=== PATIENT | female | born 1960 | race African-American/Black ===

== ENCOUNTER 2017-07-30 22:52 | Inpatient (IN) ==
[2017-07-31] MEDS ORDERED: GLUCAGON 1 MG VIAL IM PRN (02:03)
[2017-07-31] MEDS ORDERED: traZODone 50 MG TABLET PO PRN (02:03)
[2017-07-31] MEDS ORDERED: DEXTROSE 50% 25 GM/50 ML VIAL IV PRN (02:03)
[2017-07-31] MEDS ORDERED: HYDROmorphone 2 MG/1 ML VIAL IV PRN (02:08)
[2017-07-31] MEDS: SODIUM CHLORIDE 0.9% 1,000 ML IV SCH ×2 (02:26→16:30)
[2017-07-31] MEDS: PROMETHAZINE 25 MG/1 ML VIAL IM PRN ×2 (02:30→12:33)
[2017-07-31 03:24] LABS: Basophils % 0.2 % (0.0-0.8); Hematocrit 32.2 VOL% (35.7-47.0); Hemoglobin 9.8 GM/DL (12.0-16.0); Immature Granulocytes % 1.7 %; Immature Granulocytes Absolute 0.22 #; Lymphocytes # 0.5 10*3/uL (1.4-4.0); Lymphocytes % 3.6 % (21.3-54.2); Mean Corpuscular HGB Conc 30.4 GM/DL (32-36); Mean Corpuscular Hemoglobin 22 PG (27-34); Mean Corpuscular Volume 72.2 FL (87-102); Mean Platelet Volume 10.9 FL (9.6-12.0); Monocytes % 7.7 % (1.7-12.7); Neutrophils # 11.2 10*3/uL (1.4-7.4); Neutrophils % 86.8 % (38.7-73.9); Platelet Count 476 T/CUMM (130-400); Red Blood Count 4.46 MC/CUMM (3.8-5.5); White Blood Count 12.9 T/CUMM (4-12)
[2017-07-31] MEDS: INSULIN REGULAR 100 UNIT/ML SUBCUT SCH ×5 (03:30→21:07)
[2017-07-31] MEDS: ENOXAPARIN 40 MG/0.4 ML SYRINGE SUBCUT SCH (03:45)
[2017-07-31 03:51] LABS: Albumin 2.3 G/DL (3.4-5.0); Bilirubin,Total 0.8 MG/DL (0.2-1.0); Calcium 9.1 MG/DL (8.5-10.1); Magnesium 1.8 MG/DL (1.8-2.4); Osmolality,Calculated 277.5 MOS/KG (273-304); Potassium 4.5 MMOL/L (3.5-5.1); Total Protein 8.1 G/DL (6.4-8.3)
[2017-07-31] MEDS: VANCOMYCIN INJ 1,250 MG in SODIUM CHLORIDE 0.9% 250 ML IV SCH ×2 (04:06→21:40)
[2017-07-31 07:42] LABS: Band Neutrophils 14 % (0-10); Lymphocytes 6 % (20-55); Segmented Neutrophils 76 % (50-85); Total Cells Counted 100
[2017-07-31] MEDS: CIPROFLOXACIN 500 MG TABLET PO SCH ×2 (09:04→21:07)
[2017-07-31] MEDS: PANTOPRAZOLE 40 MG TABLET PO SCH (09:04)
[2017-07-31] MEDS: DOCUSATE SODIUM 100 MG CAPSULE PO SCH ×2 (09:04→21:07)
[2017-07-31] MEDS ORDERED: PROMETHAZINE 25 MG TABLET PO PRN (12:40)
[2017-07-31] MEDS: ONDANSETRON 4 MG/2 ML VIAL IV PRN (16:30)
[2017-07-31] MEDS: METOCLOPRAMIDE 10 MG/2 ML VIAL IV PRN (16:30)
[2017-07-31] MEDS ORDERED: INSULIN GLARGINE 100 UNIT/ML SUBCUT SCH (21:00)
[2017-07-31] MEDS: INSULIN GLARGINE 100 UNIT/ML SUBCUT SCH (21:08)
[2017-08-01] MEDS: SODIUM CHLORIDE 0.9% 1,000 ML IV SCH (07:11)
[2017-08-01 07:15] LABS: Basophils % 0.2 % (0.0-0.8); Eosinophils % 0.1 % (0.00-10.9); Hematocrit 31.4 VOL% (35.7-47.0); Hemoglobin 9.9 GM/DL (12.0-16.0); Immature Granulocytes % 0.5 %; Immature Granulocytes Absolute 0.06 #; Lymphocytes # 0.9 10*3/uL (1.4-4.0); Lymphocytes % 6.8 % (21.3-54.2); Mean Corpuscular HGB Conc 31.5 GM/DL (32-36); Mean Corpuscular Hemoglobin 22 PG (27-34); Mean Corpuscular Volume 70.7 FL (87-102); Mean Platelet Volume 10.1 FL (9.6-12.0); Monocytes # 1.3 10*3/uL (0.11-0.8); Monocytes % 9.6 % (1.7-12.7); Neutrophils # 10.9 10*3/uL (1.4-7.4); Neutrophils % 82.8 % (38.7-73.9); Platelet Count 496 T/CUMM (130-400); Red Blood Count 4.44 MC/CUMM (3.8-5.5); Red Cell Distribution Width 15.9 % (9.3-17.3); White Blood Count 13.1 T/CUMM (4-12)
[2017-08-01 07:50] LABS: Calcium 8.6 MG/DL (8.5-10.1); Osmolality,Calculated 276.1 MOS/KG (273-304)
[2017-08-01] MEDS: INSULIN REGULAR 100 UNIT/ML SUBCUT SCH ×4 (08:39→20:54)
[2017-08-01] MEDS: METOCLOPRAMIDE 10 MG/2 ML VIAL IV PRN (08:40)
[2017-08-01] MEDS: ONDANSETRON 4 MG/2 ML VIAL IV PRN ×2 (08:40→20:58)
[2017-08-01] MEDS: CIPROFLOXACIN 500 MG TABLET PO SCH ×2 (08:40→20:54)
[2017-08-01] MEDS: PANTOPRAZOLE 40 MG TABLET PO SCH (08:40)
[2017-08-01] MEDS: DOCUSATE SODIUM 100 MG CAPSULE PO SCH ×2 (08:41→20:54)
[2017-08-01] MEDS: ENOXAPARIN 40 MG/0.4 ML SYRINGE SUBCUT SCH (08:41)
[2017-08-01] MEDS: VANCOMYCIN INJ 1,250 MG in SODIUM CHLORIDE 0.9% 250 ML IV SCH ×2 (10:20→20:53)
[2017-08-01] MEDS: INSULIN GLARGINE 100 UNIT/ML SUBCUT SCH (20:54)
[2017-08-02 04:32] LABS: Basophils % 0.3 % (0.0-0.8); Eosinophils % 0.4 % (0.00-10.9); Hematocrit 28.6 VOL% (35.7-47.0); Hemoglobin 8.7 GM/DL (12.0-16.0); Immature Granulocytes % 0.5 %; Immature Granulocytes Absolute 0.05 #; Lymphocytes # 1.4 10*3/uL (1.4-4.0); Lymphocytes % 13.2 % (21.3-54.2); Mean Corpuscular HGB Conc 30.4 GM/DL (32-36); Mean Corpuscular Hemoglobin 22 PG (27-34); Mean Corpuscular Volume 71.7 FL (87-102); Mean Platelet Volume 10.7 FL (9.6-12.0); Monocytes # 1.1 10*3/uL (0.11-0.8); Monocytes % 10.4 % (1.7-12.7); Neutrophils # 7.9 10*3/uL (1.4-7.4); Neutrophils % 75.2 % (38.7-73.9); Platelet Count 460 T/CUMM (130-400); Red Blood Count 3.99 MC/CUMM (3.8-5.5); Red Cell Distribution Width 15.8 % (9.3-17.3); White Blood Count 10.5 T/CUMM (4-12)
[2017-08-02 04:53] LABS: Calcium 8.2 MG/DL (8.5-10.1); Potassium 3.8 MMOL/L (3.5-5.1)
[2017-08-02] MEDS: SODIUM CHLORIDE 0.9% 1,000 ML IV SCH (05:13)
[2017-08-02] MEDS: DOCUSATE SODIUM 100 MG CAPSULE PO SCH ×2 (08:50→21:11)
[2017-08-02] MEDS: CIPROFLOXACIN 500 MG TABLET PO SCH ×2 (08:50→21:11)
[2017-08-02] MEDS: INSULIN REGULAR 100 UNIT/ML SUBCUT SCH ×4 (08:50→21:17)
[2017-08-02] MEDS: PANTOPRAZOLE 40 MG TABLET PO SCH (08:51)
[2017-08-02] MEDS: ENOXAPARIN 40 MG/0.4 ML SYRINGE SUBCUT SCH (08:51)
[2017-08-02] MEDS: VANCOMYCIN INJ 1,250 MG in SODIUM CHLORIDE 0.9% 250 ML IV SCH ×2 (10:02→21:11)
[2017-08-02] MEDS ORDERED: ROPIVACAINE 0.5% 30 ML VIAL ONE (13:52)
[2017-08-02] MEDS ORDERED: ONDANSETRON 4 MG/2 ML VIAL IV PRN (14:08)
[2017-08-02] MEDS: HYDROmorphone 2 MG/1 ML VIAL IV PRN ×4 (14:12→14:37)
[2017-08-02] MEDS ORDERED: PROPOFOL 200 MG/20 ML VIAL IV ONE (14:54)
[2017-08-02] MEDS ORDERED: fentaNYL 100 MCG/2 ML VIAL ONE (14:55)
[2017-08-02] MEDS ORDERED: ACETAMINOPHEN 1,000 MG/100 ML VIAL IV ONE (14:55)
[2017-08-02] MEDS ORDERED: KETOROLAC 30 MG/1 ML VIAL ONE (14:55)
[2017-08-02] MEDS ORDERED: diphenhydrAMINE 50 MG/1 ML VIAL IV ONE (15:21)
[2017-08-02] MEDS: oxyCODONE/ACETAMINOPHEN 5-325 MG TABLET PO PRN (20:04)
[2017-08-02] MEDS: INSULIN GLARGINE 100 UNIT/ML SUBCUT SCH (21:11)
[2017-08-03] MEDS: diphenhydrAMINE CAP 25 MG CAPSULE PO PRN (00:21)
[2017-08-03 07:54] LABS: Basophils % 0.5 % (0.0-0.8); Eosinophils # 0.2 10*3/uL (0.0-0.87); Eosinophils % 2.7 % (0.00-10.9); Hematocrit 28.1 VOL% (35.7-47.0); Hemoglobin 8.6 GM/DL (12.0-16.0); Immature Granulocytes % 0.6 %; Immature Granulocytes Absolute 0.04 #; Lymphocytes # 1.5 10*3/uL (1.4-4.0); Lymphocytes % 22.7 % (21.3-54.2); Mean Corpuscular HGB Conc 30.6 GM/DL (32-36); Mean Corpuscular Hemoglobin 22 PG (27-34); Monocytes # 0.6 10*3/uL (0.11-0.8); Monocytes % 9.4 % (1.7-12.7); Neutrophils # 4.1 10*3/uL (1.4-7.4); Neutrophils % 64.1 % (38.7-73.9); Platelet Count 526 T/CUMM (130-400); Red Blood Count 3.85 MC/CUMM (3.8-5.5); Red Cell Distribution Width 16.3 % (9.3-17.3); White Blood Count 6.4 T/CUMM (4-12)
[2017-08-03 08:18] LABS: Calcium 7.8 MG/DL (8.5-10.1); Magnesium 1.6 MG/DL (1.8-2.4); Potassium 3.8 MMOL/L (3.5-5.1)
[2017-08-03] MEDS: DOCUSATE SODIUM 100 MG CAPSULE PO SCH ×2 (09:40→21:07)
[2017-08-03] MEDS: PANTOPRAZOLE 40 MG TABLET PO SCH (09:40)
[2017-08-03] MEDS: CIPROFLOXACIN 500 MG TABLET PO SCH ×2 (09:40→21:07)
[2017-08-03] MEDS: INSULIN REGULAR 100 UNIT/ML SUBCUT SCH ×4 (09:40→21:08)
[2017-08-03] MEDS: VANCOMYCIN INJ 1,250 MG in SODIUM CHLORIDE 0.9% 250 ML IV SCH (09:40)
[2017-08-03] MEDS: ENOXAPARIN 40 MG/0.4 ML SYRINGE SUBCUT SCH (09:41)
[2017-08-03] MEDS: SODIUM CHLORIDE 0.9% 1,000 ML IV SCH (09:48)
[2017-08-03] MEDS: INSULIN GLARGINE 100 UNIT/ML SUBCUT SCH (21:00)
[2017-08-04] MEDS: SODIUM CHLORIDE 0.9% 1,000 ML IV SCH ×2 (01:06→14:23)
[2017-08-04 06:59] LABS: Calcium 7.8 MG/DL (8.5-10.1); Osmolality,Calculated 289.3 MOS/KG (273-304); Potassium 4.3 MMOL/L (3.5-5.1)
[2017-08-04] MEDS: CIPROFLOXACIN 500 MG TABLET PO SCH (08:33)
[2017-08-04] MEDS: INSULIN REGULAR 100 UNIT/ML SUBCUT SCH ×4 (08:34→21:06)
[2017-08-04] MEDS: DOCUSATE SODIUM 100 MG CAPSULE PO SCH ×2 (08:34→21:04)
[2017-08-04] MEDS: PANTOPRAZOLE 40 MG TABLET PO SCH (08:34)
[2017-08-04] MEDS: ENOXAPARIN 40 MG/0.4 ML SYRINGE SUBCUT SCH (08:34)
[2017-08-04] MEDS: diphenhydrAMINE CAP 25 MG CAPSULE PO PRN (14:37)
[2017-08-04] MEDS: CILOSTAZOL 50 MG TABLET PO SCH (21:04)
[2017-08-04] MEDS: INSULIN GLARGINE 100 UNIT/ML SUBCUT SCH (21:05)
[2017-08-05] MEDS: SODIUM CHLORIDE 0.9% 1,000 ML IV SCH ×2 (03:43→16:40)
[2017-08-05] MEDS: oxyCODONE/ACETAMINOPHEN 5-325 MG TABLET PO PRN (05:00)
[2017-08-05] MEDS: DULOXETINE HCL 60 MG PO SCH (08:47)
[2017-08-05] MEDS: ENOXAPARIN 40 MG/0.4 ML SYRINGE SUBCUT SCH (08:47)
[2017-08-05] MEDS: DOCUSATE SODIUM 100 MG CAPSULE PO SCH ×2 (08:47→22:08)
[2017-08-05] MEDS: GABAPENTIN 600 MG TABLET PO SCH (08:47)
[2017-08-05] MEDS: CILOSTAZOL 50 MG TABLET PO SCH ×2 (08:47→22:07)
[2017-08-05] MEDS: PRAVASTATIN 40 MG TABLET PO SCH (08:47)
[2017-08-05] MEDS: INSULIN REGULAR 100 UNIT/ML SUBCUT SCH ×4 (08:47→22:08)
[2017-08-05] MEDS: METFORMIN HCL 1000 MG PO SCH ×2 (08:47→16:39)
[2017-08-05] MEDS: PANTOPRAZOLE 40 MG TABLET PO SCH (08:47)
[2017-08-05] MEDS ORDERED: TUBERCULIN SKIN TEST 0.1 ML SYRINGE INTRADERM ONE (14:00)
[2017-08-05] MEDS: INSULIN GLARGINE 100 UNIT/ML SUBCUT SCH (16:38)
[2017-08-06] MEDS: SODIUM CHLORIDE 0.9% 1,000 ML IV SCH (05:43)
[2017-08-06] MEDS: INSULIN REGULAR 100 UNIT/ML SUBCUT SCH ×2 (08:36→13:28)
[2017-08-06] MEDS: DOCUSATE SODIUM 100 MG CAPSULE PO SCH (09:08)
[2017-08-06] MEDS: INSULIN GLARGINE 100 UNIT/ML SUBCUT SCH (09:14)
[2017-08-06] MEDS: CILOSTAZOL 50 MG TABLET PO SCH (09:14)
[2017-08-06] MEDS: ENOXAPARIN 40 MG/0.4 ML SYRINGE SUBCUT SCH (09:14)
[2017-08-06] MEDS: DULOXETINE HCL 60 MG PO SCH (09:14)
[2017-08-06] MEDS: GABAPENTIN 600 MG TABLET PO SCH (09:15)
[2017-08-06] MEDS: PANTOPRAZOLE 40 MG TABLET PO SCH (09:15)
[2017-08-06] MEDS: PRAVASTATIN 40 MG TABLET PO SCH (09:15)
[2017-08-06] MEDS: METFORMIN HCL 1000 MG PO SCH (09:15)
[2017-08-06 12:08] VITALS: BP 153/80
== END 2017-08-06 13:50 | DRG 617 ==
LOC: SUATTDRO 07-31 00:28 → N.2E 07-31 00:28
PROVIDERS: ADMIT Emergency Medicine; ATTEND Internal Medicine

== ENCOUNTER 2020-10-18 19:04 | Inpatient (IN) ==
[2020-10-18] MEDS ORDERED: PROMETHAZINE 25 MG/1 ML VIAL IM PRN (22:46)
[2020-10-18] MEDS ORDERED: NICOTINE 21 MG/24 HR PATCH TRANSDERM PRN (22:46)
[2020-10-18] MEDS ORDERED: ZALEPLON 5 MG CAPSULE PO PRN (22:46)
[2020-10-18] MEDS ORDERED: diphenhydrAMINE CAP 25 MG CAPSULE PO PRN (22:46)
[2020-10-18] MEDS ORDERED: ACETAMINOPHEN 325 MG TABLET PO PRN (22:46)
[2020-10-18] MEDS ORDERED: GLUCAGON 1 MG VIAL IM PRN (22:46)
[2020-10-18] MEDS ORDERED: DEXTROSE 50% 25 GM/50 ML VIAL IV PRN (22:46)
[2020-10-18] MEDS ORDERED: MORPHINE 4 MG/1 ML VIAL IV PRN (22:46)
[2020-10-18] MEDS ORDERED: guaiFENesin/DM ER 600-30 MG TABLET PO PRN (22:46)
[2020-10-18] MEDS ORDERED: hydrALAZINE 20 MG/1 ML VIAL IV PRN (22:46)
[2020-10-18] MEDS ORDERED: PANTOPRAZOLE 40 MG VIAL IV ONE (22:50)
[2020-10-19] MEDS ORDERED: ASPIRIN 325 MG TABLET PO ONE (00:10)
[2020-10-19] MEDS ORDERED: NITROGLYCERIN SL 0.4 MG TABLET SL PRN (00:12)
[2020-10-19] MEDS ORDERED: METOPROLOL TARTRATE 25 MG TABLET PO ONE (00:12)
[2020-10-19 05:55] LABS: Basophils % 0.1 % (0.0-0.8); Hemoglobin 13.6 GM/DL (12.0-16.0); Immature Granulocytes % 0.3 %; Immature Granulocytes Absolute 0.04 #; Lymphocytes # 0.9 10*3/uL (1.4-4.0); Lymphocytes % 7.8 % (21.3-54.2); Mean Corpuscular HGB Conc 30.9 GM/DL (32-36); Mean Corpuscular Volume 88.7 FL (87-102); Mean Platelet Volume 11.3 FL (9.6-12.0); Monocytes % 2.3 % (1.7-12.7); Neutrophils % 89.5 % (38.7-73.9); Platelet Count 269 T/CUMM (130-400); Red Blood Count 4.96 MC/CUMM (3.8-5.5); Red Cell Distribution Width 13.2 % (9.3-17.3); White Blood Count 11.7 T/CUMM (4-12)
[2020-10-19 06:12] LABS: Albumin 3.3 G/DL (3.4-5.0); Bilirubin,Total 1.2 MG/DL (0.2-1.0); Calcium 9.4 MG/DL (8.5-10.1); Osmolality,Calculated 304.5 MOS/KG (273-304); Potassium 4.7 MMOL/L (3.5-5.1); Total Protein 8.2 G/DL (6.4-8.2)
[2020-10-19 06:18] LABS: Risk Ratio 3.51; VLDL CHOLESTEROL 32.4 MG/DL
[2020-10-19] MEDS ORDERED: INSULIN LISPRO 100 UNIT/ML SUBCUT SCH (06:30)
[2020-10-19 08:48] LABS: Troponin I 0.132 NG/ML (0.00-0.045)
[2020-10-19] MEDS ORDERED: METOPROLOL TARTRATE 25 MG TABLET PO SCH (09:00)
[2020-10-19] MEDS ORDERED: INSULIN GLARGINE 100 UNIT/ML SUBCUT SCH (09:00)
[2020-10-19] MEDS: cilostazoL 50 MG TABLET PO SCH ×2 (10:17→20:23)
[2020-10-19] MEDS: METOPROLOL TARTRATE 25 MG TABLET PO SCH ×2 (10:17→20:23)
[2020-10-19] MEDS: SIMVASTATIN 40 MG TABLET PO SCH (10:17)
[2020-10-19] MEDS: GABAPENTIN 600 MG TABLET PO SCH (10:17)
[2020-10-19] MEDS: INSULIN LISPRO 100 UNIT/ML SUBCUT SCH ×4 (10:17→20:24)
[2020-10-19] MEDS: DULoxetine 30 MG CAPSULE PO SCH (10:17)
[2020-10-19] MEDS: ONDANSETRON 4 MG/2 ML VIAL IV PRN (10:46)
[2020-10-19 11:57] LABS: Bacteria,Urine Occasional /HPF (Few); Bilirubin,Urine Negative (Negative); Blood, Urine Small mg/dL (Negative); Glucose,Urine (UA) >=500 mg/dL (Negative); Ketones,Urine 20 mg/dL (Negative); Nitrite,Urine Negative (Negative); Protein,Urine >=500 MG/DL; RBC,Urine 2 /HPF (0-4); Squamous Epithelial Cell,Urine Occasional /HPF (0-10); Urine Appearance Slightly Hazy (Clear); Urine Color Yellow (Yellow); Urine Specific Gravity 1.026 (1.001-1.035); Urine Urobilinogen < 2.0 EU/DL (0.2-1.0); WBC,Urine 1 /HPF (0-6)
[2020-10-19 11:58] LABS: Troponin I 0.109 NG/ML (0.00-0.045)
[2020-10-19] MEDS ORDERED: MULTIVITAMIN INJ 10 ML in SODIUM CHLORIDE 0.45% 1,000 ML IV SCH (12:30)
[2020-10-19] MEDS: PANTOPRAZOLE 40 MG VIAL IV SCH ×2 (13:20→20:25)
[2020-10-19] MEDS: SODIUM CHLORIDE 0.45% 1,000 ML IV SCH ×2 (13:20→21:38)
[2020-10-19 13:26] LABS: Calcium 8.9 MG/DL (8.5-10.1); Osmolality,Calculated 300.3 MOS/KG (273-304); Potassium 4.1 MMOL/L (3.5-5.1)
[2020-10-19 13:32] LABS: Troponin I 0.108 NG/ML (0.00-0.045)
[2020-10-19] MEDS: ENOXAPARIN 40 MG/0.4 ML SYRINGE SUBCUT SCH (20:22)
[2020-10-19] MEDS: INSULIN GLARGINE 100 UNIT/ML SUBCUT SCH (20:25)
[2020-10-20 05:28] LABS: Calcium 8.1 MG/DL (8.5-10.1); Osmolality,Calculated 284.8 MOS/KG (273-304); Potassium 3.5 MMOL/L (3.5-5.1)
[2020-10-20 05:32] LABS: Basophils % 0.2 % (0.0-0.8); Eosinophils % 0.3 % (0.00-10.9); Hematocrit 36.2 VOL% (35.7-47.0); Immature Granulocytes % 0.4 %; Immature Granulocytes Absolute 0.04 #; Lymphocytes # 3.9 10*3/uL (1.4-4.0); Lymphocytes % 34.4 % (21.3-54.2); Mean Corpuscular Volume 86.6 FL (87-102); Mean Platelet Volume 11.3 FL (9.6-12.0); Monocytes % 7.6 % (1.7-12.7); Neutrophils % 57.1 % (38.7-73.9); Red Blood Count 4.18 MC/CUMM (3.8-5.5); White Blood Count 11.4 T/CUMM (4-12)
[2020-10-20 05:34] LABS: Hemoglobin 11.6 GM/DL (12.0-16.0); Platelet Count 202 T/CUMM (130-400)
[2020-10-20] MEDS: SODIUM CHLORIDE 0.9% 1,000 ML IV SCH ×3 (09:03→20:34)
[2020-10-20] MEDS: cilostazoL 50 MG TABLET PO SCH (09:06)
[2020-10-20] MEDS: ASPIRIN 325 MG TABLET PO SCH (09:06)
[2020-10-20] MEDS: SIMVASTATIN 40 MG TABLET PO SCH (09:06)
[2020-10-20] MEDS: DULoxetine 30 MG CAPSULE PO SCH (09:06)
[2020-10-20] MEDS: GABAPENTIN 600 MG TABLET PO SCH (09:07)
[2020-10-20] MEDS: INSULIN LISPRO 100 UNIT/ML SUBCUT SCH ×4 (09:07→20:35)
[2020-10-20] MEDS: INSULIN GLARGINE 100 UNIT/ML SUBCUT SCH ×2 (09:07→20:33)
[2020-10-20] MEDS ORDERED: GLUCAGON 1 MG VIAL IM PRN (10:01)
[2020-10-20] MEDS ORDERED: DEXTROSE 50% 25 GM/50 ML VIAL IV PRN (10:01)
[2020-10-20] MEDS ORDERED: SODIUM CHLORIDE 0.9% 500 ML IV ONE ×2 (11:20→12:41)
[2020-10-20] MEDS ORDERED: PANTOPRAZOLE 40 MG TABLET PO SCH (11:30)
[2020-10-20] MEDS: SUCRALFATE 1 GM TABLET PO SCH ×3 (12:30→20:34)
[2020-10-20 13:54] LABS: Bilirubin,Urine Negative (Negative); Blood, Urine Negative (Negative); Glucose,Urine (UA) >=500 mg/dL (Negative); Hyaline Casts,Urine 1 /LPF (0-3); Ketones,Urine 5 mg/dL (Negative); Nitrite,Urine Negative (Negative); Protein,Urine >=500 MG/DL; RBC,Urine 1 /HPF (0-4); Squamous Epithelial Cell,Urine Occasional /HPF (0-10); Urine Appearance Slightly Hazy (Clear); Urine Color Yellow (Yellow); Urine Specific Gravity 1.021 (1.001-1.035); Urine Urobilinogen < 2.0 EU/DL (0.2-1.0); WBC,Urine 2 /HPF (0-6)
[2020-10-20] MEDS ORDERED: NOREPINEPHRINE 8 MG in SODIUM CHLORIDE 0.9% 242 ML IV PRN (17:46)
[2020-10-20] MEDS: AZITHROMYCIN 250 MG TABLET PO SCH (18:45)
[2020-10-20] MEDS: cefTRIAXone 1,000 MG in SODIUM CHLORIDE 0.9% 100 ML IV SCH (18:45)
[2020-10-20] MEDS: hydrALAZINE 20 MG/1 ML VIAL IV PRN (18:45)
[2020-10-20] MEDS: ENOXAPARIN 40 MG/0.4 ML SYRINGE SUBCUT SCH (20:34)
[2020-10-21 04:50] LABS: Basophils # 0.1 10*3/uL (0.0-0.2); Basophils % 0.6 % (0.0-0.8); Eosinophils # 0.2 10*3/uL (0.0-0.87); Eosinophils % 1.8 % (0.00-10.9); Hemoglobin 12.4 GM/DL (12.0-16.0); Immature Granulocytes % 0.4 %; Immature Granulocytes Absolute 0.03 #; Lymphocytes # 2.4 10*3/uL (1.4-4.0); Lymphocytes % 28.6 % (21.3-54.2); Mean Corpuscular HGB Conc 32.6 GM/DL (32-36); Mean Corpuscular Volume 85.6 FL (87-102); Neutrophils % 59.6 % (38.7-73.9); Platelet Count 201 T/CUMM (130-400); Red Blood Count 4.44 MC/CUMM (3.8-5.5); Red Cell Distribution Width 12.6 % (9.3-17.3); White Blood Count 8.2 T/CUMM (4-12)
[2020-10-21 05:07] LABS: Osmolality,Calculated 293.5 MOS/KG (273-304); Potassium 4.2 MMOL/L (3.5-5.1)
[2020-10-21 05:12] LABS: Albumin 2.6 G/DL (3.4-5.0); Bilirubin,Total 0.6 MG/DL (0.2-1.0); Osmolality,Calculated 295.4 MOS/KG (273-304); Potassium 3.8 MMOL/L (3.5-5.1); Total Protein 6.3 G/DL (6.4-8.2)
[2020-10-21] MEDS: hydrALAZINE 20 MG/1 ML VIAL IV PRN ×2 (05:19→11:47)
[2020-10-21] MEDS ORDERED: LABETALOL 20 MG/4 ML SYRINGE IV ONE (06:13)
[2020-10-21] MEDS: SUCRALFATE 1 GM TABLET PO SCH ×4 (07:00→22:31)
[2020-10-21] MEDS ORDERED: hydrALAZINE 20 MG/1 ML VIAL IV ONE ×2 (07:16)
[2020-10-21] MEDS: ONDANSETRON 4 MG/2 ML VIAL IV PRN ×2 (07:35→11:31)
[2020-10-21] MEDS: INSULIN LISPRO 100 UNIT/ML SUBCUT SCH ×4 (08:01→22:33)
[2020-10-21] MEDS: SODIUM CHLORIDE 0.9% 1,000 ML IV SCH ×2 (08:02→08:40)
[2020-10-21] MEDS: INSULIN GLARGINE 100 UNIT/ML SUBCUT SCH ×2 (08:02→22:32)
[2020-10-21] MEDS ORDERED: ONDANSETRON 4 MG/2 ML VIAL ONE (09:38)
[2020-10-21] MEDS ORDERED: DEXAMETHASONE 4 MG/1 ML VIAL ONE (09:38)
[2020-10-21] MEDS ORDERED: propofoL 200 MG/20 ML VIAL IV ONE (09:38)
[2020-10-21] MEDS ORDERED: LIDOCAINE 2% 5 ML VIAL ONE (09:38)
[2020-10-21] MEDS: SODIUM CHLORIDE 0.45% 1,000 ML IV SCH (10:30)
[2020-10-21] MEDS: AZITHROMYCIN 250 MG TABLET PO SCH (11:01)
[2020-10-21] MEDS: ASPIRIN 325 MG TABLET PO SCH (11:01)
[2020-10-21] MEDS: METOPROLOL TARTRATE 25 MG TABLET PO SCH ×2 (11:02→22:32)
[2020-10-21] MEDS: SIMVASTATIN 40 MG TABLET PO SCH (11:02)
[2020-10-21] MEDS: DULoxetine 30 MG CAPSULE PO SCH (11:02)
[2020-10-21] MEDS ORDERED: PROMETHAZINE INJ 25 MG in SODIUM CHLORIDE 0.9% 50 ML IV ONE (12:39)
[2020-10-21] MEDS: cefTRIAXone 1,000 MG in SODIUM CHLORIDE 0.9% 100 ML IV SCH (17:52)
[2020-10-21] MEDS: ENOXAPARIN 40 MG/0.4 ML SYRINGE SUBCUT SCH (22:33)
[2020-10-22] MEDS: SODIUM CHLORIDE 0.45% 1,000 ML IV SCH ×2 (02:39→12:13)
[2020-10-22 05:02] LABS: Basophils % 0.2 % (0.0-0.8); Eosinophils % 0.1 % (0.00-10.9); Hemoglobin 11.7 GM/DL (12.0-16.0); Immature Granulocytes % 0.4 %; Immature Granulocytes Absolute 0.04 #; Lymphocytes # 2.4 10*3/uL (1.4-4.0); Mean Corpuscular HGB Conc 32.5 GM/DL (32-36); Mean Corpuscular Volume 84.9 FL (87-102); Mean Platelet Volume 11.4 FL (9.6-12.0); Monocytes % 8.3 % (1.7-12.7); Platelet Count 199 T/CUMM (130-400); Red Blood Count 4.24 MC/CUMM (3.8-5.5); Red Cell Distribution Width 12.7 % (9.3-17.3); White Blood Count 9.3 T/CUMM (4-12)
[2020-10-22 05:22] LABS: Calcium 8.1 MG/DL (8.5-10.1); Osmolality,Calculated 286.4 MOS/KG (273-304); Potassium 3.4 MMOL/L (3.5-5.1)
[2020-10-22] MEDS ORDERED: POTASSIUM CHLORIDE 20 MEQ TABLET PO ONE (07:25)
[2020-10-22] MEDS: SUCRALFATE 1 GM TABLET PO SCH ×2 (09:21→14:01)
[2020-10-22] MEDS: ASPIRIN 325 MG TABLET PO SCH (09:22)
[2020-10-22] MEDS: DULoxetine 30 MG CAPSULE PO SCH (09:22)
[2020-10-22] MEDS: SIMVASTATIN 40 MG TABLET PO SCH (09:22)
[2020-10-22] MEDS: AZITHROMYCIN 250 MG TABLET PO SCH (09:22)
[2020-10-22] MEDS: METOPROLOL TARTRATE 25 MG TABLET PO SCH (09:23)
[2020-10-22] MEDS: SODIUM CHLORIDE 0.9% 1,000 ML IV SCH (09:23)
[2020-10-22] MEDS: INSULIN LISPRO 100 UNIT/ML SUBCUT SCH ×2 (09:24→14:01)
[2020-10-22] MEDS: INSULIN GLARGINE 100 UNIT/ML SUBCUT SCH (09:32)
[2020-10-22 11:53] VITALS: BP 119/74
== END 2020-10-22 13:28 | disposition home or self-care (01) | DRG 392 ==
LOC: N.TELEN 22:24 → SUATTDRO 22:24 → N.CC 10-20 16:42 → N.TELES 10-21 12:30
PROVIDERS: ADMIT Internal Medicine; ATTEND Family Medicine